=== PATIENT | female | born 1985 | race Caucasian/White ===

== ENCOUNTER 2023-08-13 07:05 | Outpatient (CLI) | payer BC, SELFPAY ==
--- NOTE | ~2023-08-13 | MM_ITS ---
EXAMINATION: MM screening silvia BI w lori HISTORY: Screening TECHNIQUE: Craniocaudal and mediolateral oblique 3-D tomosynthesis images were obtained and synthetic 2-D images were generated. CAD analysis was submitted and interpreted. COMPARISON: No prior mammogram is available for comparison at this institution. BREAST PARENCHYMAL COMPOSITION: There are scattered areas of fibroglandular density. FINDINGS: There is no evidence of suspicious mass, calcification, or architectural distortion to sugg est malignancy in either breast. There has been no suspicious interval change. IMPRESSION: 1. No mammographic evidence of malignancy. 2. Recommend routine screening mammography in one year. BI-RADS Category 1: Negative Reviewed, dictated and finalized at location B.
== END 2023-08-13 07:06 ==
PROVIDERS: PCP Obstetrics & Gynecology; Visit Provider Obstetrics & Gynecology
DX: Z12.31 Encounter for screening mammogram for malignant neoplasm of breast (principal)
CPT/HCPCS: 77063; 77067

== ENCOUNTER 2024-12-04 15:24 | Outpatient (CLI) | payer BC, SELFPAY ==
--- NOTE | ~2024-12-04 | MM_ITS ---
EXAMINATION: MM screening [facility] BI w lori HISTORY: Screening TECHNIQUE: Craniocaudal and mediolateral oblique 3-D tomosynthesis images were obtained and synthetic 2-D images were generated. CAD analysis was submitted and interpreted. COMPARISON: 08/14/2023 BREAST PARENCHYMAL COMPOSITION: There are scattered areas of fibroglandular density. FINDINGS: There is no evidence of suspicious mass, calcification, or architectural distortion to suggest malignancy. Asymmetry upper right breast, posterior depth, seen in the right MLO projection. IMPRESSION: 1. Asymmetry upper right breast, posterior depth, seen in the right MLO projection. The study is incomplete. A diagnostic mammogram and a diagnostic ultrasound are recommended. 2. No mammographic evidence for malignancy in the left breast. BI-RADS 0: Incomplete-Need additional imaging evaluation. Reviewed, dictated and finalized at location Q. IMPRESSION: 1. Asymmetry upper right breast, posterior depth, seen in the right MLO project ion. The study is incomplete. A diagnostic mammogram and a diagnostic ultrasoun d are recommended. 2. No mammographic evidence for malignancy in the left breast. BI-RADS 0: Incomplete-Need additional imaging evaluation.
--- OUTSIDE RECORDS SUMMARY | 2024-12-04 17:33 | XMS_ITS | Clinical Summary ---
Author Organization [facility] Address [address] [place] [address] Care Team Providers Care Employment Consultant Name Role Phone Janneth Nieves MD Primary Care Provider + Allergies No known active allergies Medications clobetasol (TEMOVATE) 0.05 % ointment Apply topically 2 (two) times daily. 4 Active levonorgestrel (MIRENA, 52 MG,) 20 MCG/DAY IUDIndications: IUD placed 01/2023 1 Intra Uterine Device. Indications: IUD placed 01/2023 3 Active sertraline (ZOLOFT) 50 MG tablet Take 1 tablet (50 mg total) by mouth daily. 5 Active Active Problems Problem Noted Date Diagnosed Date Thyroid nodule 12/25/2023 Overview (12/25/2023): Patient had biopsy done in 2018. ENT since retired. She is not sure about what follow-up is necessary. Assessment & Plan (12/25/2023 1:29 PM CDT): Thyroid fullness is appreciated on exam today. Will arrange for TSH with reflex and repeat ultrasound for monitoring purposes while also acquiring records from [place]. Encounters Date Type Department Care Team Description 09/09/2024 9:30 AM CDT Office Visit [facility] Family Medicine - [place] [address] [place] [address] Janneth Nieves MD Blood In Stool (Having blood in stool. Onset- last week. She has been straining to have a bm yest and today. Bright red. Color of stool is normal ) 09/09/2024 Scan HEALTH INFO SRVCS Scanned, [facility] 09/09/2024 Travel from Last 3 Months Immunizations Immunization Administration Dates Next Due Tdap (Adacel) 12/25/2023 Family History Medical History Relation Comments No Known Problems Brother Cancer Father Skin cancer on h is back Hypertension Father Cancer Mother Skin cancer on h er nose Hypertension Mother Valve Disease Son Relation Status Comments Brother Alive Father Alive Mother Alive Son Alive Social History Tobacco Use Types Packs/Day Years Used Date Smoking Tobacco: Never Passive Smoke Exposure: Never Smokeless Tobacco: Never Tobacco Cessation:Counseling Given: No Alcohol Use Standard Drinks/Week Comments Yes 3 (1 standard drink = 0.6 oz pur e alcohol) socially PHQ-2 Answer Date Recorded Patient Health Questionnaire-2 Score 0 09/09/2024 Comments No Sex and Gender Information Value Date Recorded Sex Assigned at Not on file Legal Sex Female 10:19 AM CDT Gender Identity Not on file Sexual Orientation Not on file Last Filed Vital Signs Vital Sign Reading Time Taken Comments Blood Pressure 120/88 09/09/2024 9:32 AM CDT Pulse 94 09/09/2024 9:32 AM CDT Temperature 37.1 C (98.7 F) 09/09/2024 9:32 AM CDT Respiratory Rate 20 12/25/2023 12:2 1 PM CDT Oxygen Saturation 100% 09/09/2024 9:32 AM CDT Inhaled Oxygen Concentration - - Weight 102.2 kg (225 lb 3.2 oz) 09/09/2024 9:32 AM CDT Height 162.6 cm (5' 4) 09/09/2024 9:32 AM CDT Body Mass Index 38.66 09/09/2024 9:32 AM CDT Plan of Treatment Upcoming Encounters Date Type Department Care Team (Late st Contact Info) Description 12/26/2024 7:50 AM CDT Office Visit [facility] Family Medicine [facility] [address] [place] [address] Janneth Nieves MD [address] [place] [address] Health Maintenance Due Date Last Done Comments Cervical Cancer Screening Pa p Smear (Age 30 to 64) Every 3 Years 1983 Hepatitis C 05/24/2001 Hepatitis B Vaccines (1 of 3 - 19+ 3-dose series) 05/24/2002 HPV Vaccines (1 - 3-dose SCD M series) 05/24/2010 COVID-19 Vaccine (3 - 2024-2 6 season) 2024 12/27/2020, 12/06/2020 Annual Physical 12/24/2024 12/25/2023 Mammogram Screening 08/12/2025 08/13/2023 Cervical Cancer Screening Pa p with HPV Testing (Age 30 to 64) Every 5 Years 12/06/2027 12/05/2022 Cervical Cancer Screening wi th HPV 12/06/2027 DTaP, Tdap and Td Vaccines ( 2 - Td or Tdap) 12/24/2033 12/25/2023 PHQ-2 (Physician Eighty Four) Completed 09/09/2024 Meningococcal B Vaccine Aged Out No l onger eligible based on patient's age to complete this topic Meningococcal Vaccine Aged Out No jordan reynaldo eligible based on patient's age to complete this topic Pneumococcal Vaccine: Pediatrics (0 to 5 Years) and At-Risk Patients (6 to 49 Years) Aged Out No longer eligible b ased on patient's age to complete this topic RSV Immunizations Under 20 Months Aged Out No longer eligible b ased on patient's age to complete this topic Procedures Procedure Name Priority Date/Time Associated Diagnosis Comments MAMMOGRAM GENERIC (SCAN ORDER) 08/13/2023 OUTSIDE CYTOPATH CERV/VAG IN TERPRET (PAP) 12/05/2022 from Last 3 Months or Most Recently Relevant to Health Maintenance Results * MAMMOGRAM GENERIC (SCAN ORDER) (08/13/2023) Anatomical Region Laterality Modality Other 08/13/2023 [facility] Scanned SCANNING Final Resu lt * PAP SMEAR WITH HPV (12/05/2022) 12/05/2022 [facility] Scanned SCANNING Final Resu lt from Last 3 Months or Most Recently Relevant to Health Maintenance [place] [address] [id number] [facility] Care Teams Employment Consultant Relationship Specialty Start Date End Date Janneth Nieves MD [address] [place] [address] PCP - General FAMILY PRACTICE 12/25/23
--- OUTSIDE RECORDS SUMMARY | 2024-12-04 17:33 | XMS_ITS | Encounter Summary ---
Author Organization [facility] Address [address] [facility] [place] [address] Care Team Providers Care Corn Husk Baler Name Role Phone Sanjuana Mosher DO Primary Care Provider Sanjuana Mosher DO Primary Care Provider Sanjuana Mosher DO Unavailable [phone] Kasandra Gonsalez MD Unavailable [phone] Encounter Details Date Type Department Care Team (Late st Contact Info) Description 02/21/2018 Lab Requisition [facility] Pathology Lab [address] [place] [address] Daniel Naranjo MD [address] [address] Social History Tobacco Use Types Packs/Day Years Used Date Smoking Tobacco: Never Assessed Comments No Sex and Gender Information Value Date Recorded Sex Assigned at Not on file Legal Sex Female 3:32 PM SANITATION DIRECTOR Gender Identity Not on file Sexual Orientation Not on file documented as of this encounter Plan of Treatment Not on file documented as of this encounter Procedures Procedure Name Priority Date/Time Associated Diagnosis Comments PATHOLOGY TISSUE Routine 02/19/2018 documented in this encounter Results * PATHOLOGY TISSUE (02/19/2018) Case Report Surgical Pathology Report Case: [id number] Authorizing Provider: Daniel Naranjo MD Collected: 02/19/2018 Pathologist: Debby Chino MD Received: 02/21/2018 03:39 PM Specimen: Lymph Node Biopsy, [id number] 02/22/2018 10:31 AM [facility] Final Diagnosis Lymph node, right neck, needle core biopsy ([facility] [id number], 02/19/18): - Benign lymph node, as sampled. - See description. 02/22/2018 10:31 AM [facility] at 1031 SANITATION DIRECTOR Microscopic Description and Comment Review of the right neck lymph node biopsy specimen reveals three small portions of lymph node tissue with a portion of capsule seen. A single small well-defined germinal center is identified on H&E. Further assessment of the quin architecture is limited. The lymphocytes are polymorphous, but mostly small to intermediate in size. No extrinsic cell population or definitive monomorphic populations are seen. No Hodgkin/Delgado-Sternber g-like (HRS-like) cells, increased inflammatory cells, increased fibrosis, mitoses, necrosis, apoptotic bodies, or granulomas are identified. Immunohistochemical stains for CD3 and CD20 are performed on the block in the [facility] Department of Pathology, with appropriately reactive controls, to better demonstrate the quin architecture. CD20 highlights a few primary follicles, the single germinal center, as well as few scattered interfollicular B-cells. CD3 highlights the interfollicular T-cells. Overall, these findings are most consistent with a benign lymph node. However, due to the limited nature of the specimen, excision of a superficial, lesional lymph node is recommended, if possible, for a more comprehensive morphologic/architect internship ural, flow cytometric, and immunohistochemical evaluation if there is persistent clinical concern for a lymphoproliferative disorder. Correlation with clinical findings is required. KR/NW 02/22/2018 10:31 AM [facility] Clinical History 02/22/2018 10:31 AM [facility] Materials Received Received are 2 slides and 1 block labeled as [id number] along with the outside pathology report. The materials originate from [facility], [address] [place] [address]. All materials are returned to the referring institution, along with a copy of our final report. 02/22/2018 10:31 AM [facility] Disclaimer The performance characteristics of all immunohistochemical and indirect immunofluorescence stains (if any) cited in this report were determined by the Histopathology Laboratory of [facility]. Some of these tests were developed by our own laboratory and have not been cleared or approved by the US Food and Drug Administration. The FDA does not require this test to go through premarket FDA review. These tests are used for clinical purposes. They should not be regarded as investigational or for research. This laboratory is certified under the Clinical Laboratory Improvement Amendments (CLIA) as qualified to perform high complexity clinical laboratory testing. This case has been personally reviewed and interpreted by the attending (teaching) pathologist. 02/22/2018 10:31 AM SANITATION DIRECTOR [facility] Embedded Images 02/22/2018 10:31 AM SANITATION DIRECTOR [facility] Pathology/Cytolog y BIOPSY OF LYMPH NODE / Unknown 02/19/2018 02/21/2018 3:39 PM SANITATION DIRECTOR us Daniel Naranjo MD LAB - PATHOLOGY/CYTOLOGY ORDER HIMA Final Result Performing Organization Address City/State/[facility] de Phone Number [facility] [address] [phone] documented in this encounter Visit Diagnoses Not on filedocumented in this encounter Care Teams Corn Husk Baler Relationship Specialty Start Date End Date Sanjuana Mosher DO [address] [place] [phone] PCP - General Family Medicine 06/09/16 07/09/18 Sanjuana Mosher DO [address] [place] [phone] PCP - General 07/10/18 Sanjuana Mosher DO [address] [place] [phone] Family Medicine 07/10/18 [place] [address] [address] Surface Hydrologist Obstetrics and Gynecology 05/22/13 documented as of this encounter
--- OUTSIDE RECORDS SUMMARY | 2024-12-04 17:33 | XMS_ITS | Encounter Summary ---
Author Organization [facility] Address [address] [place] [address] Care Team Providers Care Car Shunter Name Role Phone Janneth Nieves MD Primary Care Provider + Encounter Details Date Type Department Care Team (Late Contact Info) Description 01/16/2024 MyChart Message Enc [facility] Family Medicine [facility] [address] [address] Janneth Nieves MD [address] [place] [phone] Thyroid Social History Tobacco Use Types Packs/Day Years Used Date Smoking Tobacco: Never Passive Smoke Exposure: Never Smokeless Tobacco: Never Alcohol Use Standard Drinks/Week Comments Yes 3 (1 standard drink = 0.6 oz pur e alcohol) PHQ-2 Answer Date Recorded Patient Health Questionnaire-2 Score 1 12/25/2023 Comments No Sex and Gender Information Value Date Recorded Sex Assigned at Not on file Legal Sex Female 10:19 AM CDT Gender Identity Not on file Sexual Orientation Not on file documented as of this encounter Plan of Treatment Upcoming Encounters Date Type Department Care Team (Late st Contact Info) Description 12/26/2024 7:50 AM CDT Office Visit [facility] Medicine [facility] [address] [facility] [address] [place] [address] Janneth Nieves MD [address] [place] [address] documented as of this encounter Visit Diagnoses Not on filedocumented in this encounter Care Teams Car Shunter Relationship Specialty Start Date End Date Janneth Nieves MD [address] [address] PCP - General FAMILY PRACTICE 12/25/23 documented as of this encounter
--- OUTSIDE RECORDS SUMMARY | 2024-12-04 17:33 | XMS_ITS | Clinical Summary ---
Author Organization [facility] Address [address] [place] [address] Care Team Providers Care Germination Worker Name Role Phone Sanjuana Mosher DO Primary Care Provider [phone] Sanjuana Mosher DO Unavailable [phone] Kasandra Gonsalez MD Unavailable [phone] Source Comments [facility],non-owned Affiliates and Associated Physician Practices is amultiple site organization consisting of ambulatory clinics and hospital sitesin [place], [place], [place] and [place]. This disclosure is being madepursuant to the Care Everywhere program and may not contain all information available regarding this patient. Last updated 17.[facility] Allergies No known active allergies Medications * Be aware that medications may not be up to date on this document. Alwaysverify current medications with the patient. nystatin-triamci nolone (MYCOLOG) 668307-1.1 UNIT/GM-% creamIndications :Intertrigo Apply to affected area 2 times daily as needed Apply to lower abdomen, inner thighs, and under arms 30 g 1 1 Active norethindrone (Ortho Micronor; Nor-Qd; Henrietta; Ayanna; Le-Be; Kerri; Jolivette) 0.35 MG tabletIndication s:Family planning, BCP ( control pills) maintenance Take 1 (one) tablet by mouth once daily 3 packet 3 Active Active Problems Problem Noted Date Diagnosed Date Morbid obesity due to excess calories 06/10/2015 Elevated blood pressure 10/30/2013 Family History Medical History Relation Name Comments Hypertension Father Stroke Maternal Grandmother Hypertension Mother Hypertension Paternal Grandfather Hypertension Paternal Grandmother Relation Name Status Comments Father Alive Maternal Grandmother Mother Alive Paternal Grandfather Paternal Grandmother Social History Tobacco Use Types Packs/Day Years Used Date Smoking Tobacco: Passive Smo ke Exposure - Never Smoker Smokeless Tobacco: Never Alcohol Use Standard Drinks/Week Comments Yes 0 (1 standard drink = 0.6 oz pur e alcohol) PHQ-2 Answer Date Recorded PHQ2 TOTAL SCORE 3 09/27/2021 Comments No Sex and Gender Information Value Date Recorded Sex Assigned at Not on file Legal Sex Female 3:32 PM BIBLE TEACHER Gender Identity Not on file Sexual Orientation Not on file Last Filed Vital Signs Vital Sign Reading Time Taken Comments Blood Pressure 138/82 10/04/2021 12:59 PM CDT Pulse 88 06/13/2017 2:40 PM CDT Temperature 36 C (96.8 F) 10/13/2013 2:03 PM CDT Respiratory Rate 16 11/25/2013 8:25 AM CDT Oxygen Saturation 100% 10/13/2013 2:03 PM CDT Inhaled Oxygen Concentration - - Weight 102.5 kg (226 lb) 10/04/2021 12:59 PM CDT Height 165.1 cm (5' 5) 10/04/2021 12:59 PM CDT Body Mass Index 37.61 10/04/2021 12:59 PM CDT Plan of Treatment Health Maintenance Due Date Last Done Comments LIPID TESTING 1985 MAMMOGRAM 1985 HIV SCREENING 05/24/1998 HEPATITIS C SCREENING 05/20/2001 DTAP/TDAP/TD VACCINES (1 - Tdap) 05/24/2002 HEPATITIS B VACCINE (1 of 3 - 19+ 3-dose series) 05/24/2002 HPV VACCINE (1 - 3-dose SCDM series) 05/24/2010 DEPRESSION SCREENING 03/12/2024 COVID-19 VACCINE (3 - 2024-2 6 season) 2024 12/27/2020, 12/06/2020 INFLUENZA VACCINE (#1) 2024 PAP with HPV 09/20/2025 09/20/2020, 06/13/2017, 05/29/2014 ZOSTER VACCINE (1 of 2) 05/24/2033 HIB VACCINE Aged Out No longer eligi ble based on patient's age to complete this topic MENINGOCOCCAL (Group B) VACCINE SHARED DECISION-MAKING Aged Out No longer eligible based on patient's age to complete this topic MENINGOCOCCAL GROUPS A/C/Y/W VACCINE Aged Out No longer eligible b ased on patient's age to complete this topic PNEUMOCOCCAL VACCINE Aged Out No long er eligible based on patient's age to complete this topic Procedures Procedure Name Priority Date/Time Associated Diagnosis Comments PAP IG LB +HPV APTIMA REFLEX 16,18/45 Routine 09/20/2020 5:15 PM CDT Well female exam with routine gynecological exam Special screening examination for human papillomavirus (HPV) from Last 3 Months or Most Recently Relevant to Health Maintenance Results * PAP IG LB +HPV APTIMA REFLEX 16,18/45 (09/20/2020 5:15 PM CDT) Diagnosis [facility] INSURANCE BILL Comment:NEGATIVE FOR INTRAEP ITHELIAL LESION OR MALIGNANCY. Specimen Adequacy [facility] INSURANCE BILL Comment: Satisfactory for evaluation. Endocervical and/or squamous metaplastic cells (endocervical component) are present. Clinician Provided ICD10 [facility] INSURANCE BILL Comment: Z01.419 Z11.51 Z30.41 L30.4 Performed by [facility] INSURANCE BILL Comment:Viola Hernandez, Cyto technologist (ASCP) Comment . [facility] INSURANCE BILL Note [facility] INSURANCE BILL Comment: The Pap smear is a screening test designed to aid in the detection of premalignant and malignant conditions of the uterine cervix. It is not a diagnostic procedure and should not be used as the sole means of detecting cervical cancer. Both false-positive and false-negative reports do occur. . [facility] CPT Code Automation [facility] INSURANCE BILL Comment: This liquid based ThinPrep(R) pap test was screened with the use of an image guided system. Human papillomavirus Aptima Negative Negative [facility] INSURANCE BILL Comment: This nucleic acid amplification test detects fourteen high-risk HPV types (16,18,31,33,35,39,45,51,52,56,58,59,66,68) without differentiation. PART OF UTERINE CERVIX / Unknown 09/20/2020 5:15 PM CDT 09/21/2020 Narrative [facility] INSURANCE BILL - 09/22/2020 5:08 PM CDT Source.............Cervix;Endocervix No. of containers..01 ThinPrep Vial Resulting Agency Comment Lab Testing performed at: [address] [id number] Kasandra Gonsalez MD LAB - PATHOLOGY/CYTOLOGY ORDER HIMA Final Result [facility] INSURANCE BILL [address] [place] [address] from Last 3 Months or Most Recently Relevant to Health Maintenance Insurance [facility] [employer] Care Teams Germination Worker Relationship Specialty Start Date End Date Sanjuana Mosher DO [address] [place] [phone] PCP - General 07/10/18 Sanjuana Mosher DO [address] [place] [phone] Family Medicine 07/10/18 [place] [address] [place] [id number] Data Warehouse Analyst Obstetrics and Gynecology 05/22/13
== END 2024-12-04 15:25 | disposition home or self-care (01) ==
LOC: ANHFOHIMG 15:27
PROVIDERS: PCP Student in an Organized Health Care Education/Training Program; Visit Provider Obstetrics & Gynecology
DX: Z12.31 Encounter for screening mammogram for malignant neoplasm of breast (principal); R92.8 Other abnormal and inconclusive findings on diagnostic imaging of breast
CPT/HCPCS: 77063; 77067

== ENCOUNTER 2024-12-22 09:38 | Outpatient (CLI) | payer BC, SELFPAY ==
--- NOTE | ~2024-12-22 | US_ITS ---
Please see the mammogram report from 12/22/2024 for the combined mammogram and breast ultrasound report for this patient from 12/22/2024. Reviewed, dictated and finalized at location Q.
--- NOTE | ~2024-12-22 | MM_ITS ---
EXAMINATION: MM diagnostic silvia RT w lori HISTORY: Inconclusive mammogram TECHNIQUE: Additional 3-D tomosynthesis images of the right breast were performed and synthetic 2-D images were generated. CAD analysis was submitted and interpreted. High resolution right breast ultrasound was performed. COMPARISON: Mammograms from 12/04/2024 and 08/13/2023 BREAST PARENCHYMAL COMPOSITION: The breasts are heterogeneously dense, which may obscure small masses. FINDINGS: MAMMOGRAPHIC FINDINGS: The asymmetry in the upper right breast, posterior depth represents a nonenlarged, morphologically benign intramammary lymph node in the right breast at the 10:00 position, 13 cm from the nipple, by sonography. ULTRASOUND: There is a 0.4 x 0.5 x 0.4 cm nonenlarged, morphologically benign intramammary lymph node in the right breast at 10:00 position 13 cm from the nipple. IMPRESSION: 1. No evidence of malignancy. Annual screening mammography is recommended. BI-RADS2: Benign Reviewed, dictated and finalized at location Q.
--- OUTSIDE RECORDS SUMMARY | 2024-12-22 10:15 | XMS_ITS | Encounter Summary ---
Author Organization [facility] Address [address] [place] [address] Care Team Providers Care Communication Clerk Name Role Phone Janneth Nieves MD Primary Care Provider + Encounter Details Date Type Department Care Team (Late Contact Info) Description 01/16/2024 MyChart Message Enc [facility] Family Medicine [facility] [address] [address] Janneth Nieves MD [address] [place] [address] [phone] Thyroid Social History Tobacco Use Types Packs/Day [...] Description 12/26/2024 7:50 AM CDT Office Visit [facility] Medicine [facility] [address] [facility] [address] [place] [address] aJnneth Nieves MD [address] [place] [address] documented as of this encounter Visit Diagnoses Not on filedocumented in this encounter Care Teams Communication Clerk Relationship Specialty Start Date End Date Janneth Nieves MD [address] [address] PCP - General FAMILY PRACTICE 12/25/23 documented as of this encounter
--- OUTSIDE RECORDS SUMMARY | 2024-12-22 10:15 | XMS_ITS | Encounter Summary ---
Author Organization [facility] Address [address] [place] [address] Care Team Providers Care Forming Machine Upkeep Mechanic Helper Name Role Phone Sanjuana Mosher DO Primary Care Provider [phone] Sanjuana Mosher DO Primary Care Provider Sanjuana Mosher DO Unavailable [phone] Kasandra Gonsalez MD Unavailable [phone] Encounter Details Date Type Department Care Team (Late st Contact Info) Description 02/21/2018 Lab Requisition [facility] [address] [place] [address] Daniel Naranjo MD [address] [address] Social History Tobacco Use Types Packs/Day Years Used Date Smoking Tobacco: Never Assessed Comments No Sex and Gender Information Value Date Recorded Sex Assigned at Not on file Legal 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 Gender Identity Not on file Sexual Orientation Not on file documented as of this encounter Plan of Treatment Not on file documented as of this encounter Procedures Procedure Name Priority Date/Time Associated Diagnosis Comments PATHOLOGY TISSUE Routine 02/19/2018 documented in this encounter Results * PATHOLOGY TISSUE (02/19/2018) Case Report Surgical Pathology Report Case: [id number] Authorizing Provider: Daniel Naranjo MD Collected: 02/19/2018 Pathologist: Debby Chino MD Received: 02/21/2018 03:39 PM Specimen: Lymph Node Biopsy, [id number] 02/22/2018 10:31 AM [facility] Final Diagnosis Lymph node, right neck, needle core biopsy ([facility] [id number], 02/19/18): - Benign lymph node, as sampled. - See description. 02/22/2018 10:31 AM [facility] at [address] SPRAY BOOTH OPERATOR Microscopic Description and Comment Review of the [...] are performed on the block in the [facility] Department of Pathology, with appropriately reactive controls, [...] recommended, if possible, for a more comprehensive morphologic/sfdc architect ural, flow cytometric, and immunohistochemical evaluation if there is persistent clinical concern for a lymphoproliferative disorder. Correlation with clinical findings is required. KR/NW 02/22/2018 10:31 AM [facility] Clinical History 02/22/2018 10:31 AM [facility] Materials Received Received are 2 slides and 1 block labeled as [id number] along with the outside pathology report. The materials originate from [facility], [address] [place], [place] [id number]. All materials are returned to the referring institution, along with a copy of our final report. 02/22/2018 10:31 AM [facility] Disclaimer The performance characteristics of all immunohistochemical and indirect immunofluorescence stains (if any) cited in this report were determined by the Histopathology Laboratory of [facility]. Some of these tests were developed by [...] the attending (teaching) pathologist. 02/22/2018 10:31 AM SPRAY BOOTH OPERATOR [facility] Embedded Images 02/22/2018 10:31 AM SPRAY BOOTH OPERATOR [facility] Pathology/Cytolog y BIOPSY OF LYMPH NODE / Unknown 02/19/2018 02/21/2018 3:39 PM SPRAY BOOTH OPERATOR Daniel Naranjo MD LAB - PATHOLOGY/CYTOLOGY ORDER HIMA Final Result Performing Organization Address City/State/[facility] de Phone Number [facility] [address] [phone] documented in this encounter Visit Diagnoses Not on filedocumented in this encounter Care Teams Forming Machine Upkeep Mechanic Helper Relationship Specialty Start Date End Date Sanjuana Mosher DO [address] [place] [phone] PCP - General Family Medicine 06/09/16 07/09/18 Sanjuana Mosher DO [address] [place] [phone] PCP - General 07/10/18 Sanjuana Mosher DO [address] [place] [phone] Family Medicine 07/10/18 Kasandra Gonsalez MD [address] [place] [phone] Hydraulic Plumber Obstetrics and Gynecology 05/22/13 documented as of this encounter
--- OUTSIDE RECORDS SUMMARY | 2024-12-22 10:15 | XMS_ITS | Clinical Summary ---
Author Organization [facility] [employer] Address [address] [place] [address] Care Team Providers Care Pot Press Operator Name Role Phone Sanjuana Mosher DO Primary Care Provider Sanjuana Mosher DO Unavailable [phone] Kasandra Gonsalez MD Unavailable [phone] Source Comments [facility],non-owned Affiliates and Associated Physician Practices is amultiple site organization consisting of ambulatory clinics and hospital sitesin [place], [place], [place] and [place]. This disclosure is being madepursuant to the Care Everywhere program and may not contain all information available regarding this patient. Last updated 17.[facility] Allergies No known active allergies Medications * Be aware that medications may not be up to date on this document. Alwaysverify current medications with the patient. 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 Specimen Adequacy [facility] INSURANCE BILL Comment: Satisfactory for evaluation. Endocervical and/or squamous metaplastic cells (endocervical component) are present. Clinician Provided ICD10 [facility] INSURANCE BILL Comment: Z01.419 Z11.51 Z30.41 L30.4 Performed by [facility] INSURANCE BILL Comment:Viola Hernandez, Cyto technologist (ASCP) [...] guided system. Human papillomavirus Aptima Negative Negative [facility] INSURANCE BILL Comment: This nucleic acid amplification test detects fourteen high-risk HPV types (16,18,31,33,35,39,45,51,52,56,58,59,66,68) without differentiation. PART OF UTERINE CERVIX / Unknown 09/20/2020 5:15 PM CDT 09/21/2020 Narrative [facility] INSURANCE BILL - 09/22/2020 5:08 PM CDT Source.............Cervix;Endocervix No. of containers..01 ThinPrep Vial Resulting Agency Comment Lab Testing performed at: [address] [phone] Kasandra Gonsalez MD LAB - PATHOLOGY/CYTOLOGY ORDER HIMA Final Result [facility] INSURANCE BILL [address] [place] [address] from Last 3 Months or Most Recently Relevant to Health Maintenance Insurance [facility] [employer] Care Teams Pot Press Operator Relationship Specialty Start Date End Date Sanjuana Mosher DO [address] [place] [phone] PCP - General 07/10/18 Sanjuana Mosher DO [address] [place] [phone] Family Medicine 07/10/18 Kasandra Gonsalez MD [address] [place] [phone] Stockroom Coordinator Obstetrics and Gynecology 05/22/13
--- OUTSIDE RECORDS SUMMARY | 2024-12-22 10:15 | XMS_ITS | Clinical Summary ---
Author Organization [facility] Address [address] [place] [id number] Care Team Providers Care Sharepoint Manager Name Role Phone Janneth Nieves MD Primary [...] monitoring purposes while also acquiring records from [facility]. Encounters Date Type Department Care Team Description 12/04/2024 Scan [facility] Scanned, Doc [facility] Mammogram (SCAN) from Last 3 Months Immunizations Immunization Administration [...] Description 12/26/2024 7:50 AM CDT Office Visit [facility] - [place] [address] [place] [phone] Janneth Nieves MD [address] [place] [phone] Health Maintenance Due Date Last Done Comments Cervical Cancer Screening Pa p Smear (Age 30 to 64) Every 3 Years 1983 Hepatitis C 05/24/2001 Hepatitis B Vaccines (1 of 3 - 19+ 3-dose series) 05/24/2002 HPV Vaccines (1 - 3-dose SCD M series) 05/24/2010 COVID-19 Vaccine (2024-2 6 season) 2024 12/27/2020, 12/06/2020 Influenza Adult (#1) 2024 Annual Physical 12/24/2024 12/25/2023 Mammogram Screening 12/04/2026 12/04/2024, 08/13/2023 Cervical Cancer Screening Pa p with HPV Testing (Age 30 to 64) Every 5 Years 12/06/2027 12/05/2022 Cervical Cancer Screening wi th HPV 12/06/2027 DTaP, Tdap and Td Vaccines ( 2 - Td or Tdap) 12/24/2033 12/25/2023 PHQ-2 (Physician [place]) Completed 09/09/2024 Hepatitis A Vaccines Aged Out No long er eligible based on patient's age to complete this topic Meningococcal B Vaccine Aged Out No l [...] Associated Diagnosis Comments MAMMOGRAM GENERIC (SCAN ORDER) 12/04/2024 OUTSIDE CYTOPATH CERV/VAG IN TERPRET (PAP) 12/05/2022 from Last 3 Months or Most Recently Relevant to Health Maintenance Results * MAMMOGRAM GENERIC (SCAN ORDER) (12/04/2024) Anatomical Region Laterality Modality Other 12/04/2024 [facility] Scanned SCANNING Final Resu lt * PAP SMEAR WITH HPV (12/05/2022) 12/05/2022 [facility] Scanned SCANNING Final Resu lt from Last 3 Months or Most Recently Relevant to Health Maintenance Insurance [facility] Care Teams Sharepoint Manager Relationship Specialty Start Date End Date Janneth Nieves MD [address] [place] [id number] PCP - General FAMILY PRACTICE 12/25/23
== END 2024-12-22 09:39 | disposition home or self-care (01) ==
LOC: CHSIMG 09:38
PROVIDERS: PCP Student in an Organized Health Care Education/Training Program; Visit Provider Obstetrics & Gynecology
DX: N64.89 Other specified disorders of breast (principal)
CPT/HCPCS: 76642; 77061; 77065; G0279